=== PATIENT | male | born 1935 | race Caucasian/White ===

== ENCOUNTER → 2017-03-23 | Outpatient (CLI) | payer MEDICARE, OTHER ==
[~2017-03-23] MED LIST: ALLOPURINOL; ASPIRIN81 M1 PO; EYE DROPS; LAMISIL250 MG PO; Lopressor25 MG PO; MAREPA1200 MG; NAPROSYN500 MG PO; PLAVIX75 MG PO; SIMVASTATIN20 MG PO; SIMVASTATIN40 MG PO; SYNTHROID,LEV150 MCG PO; ZYLOPRIM100 MG PO
--- NOTE | ~2017-03-23 | HM ---
[place], [place] HOLTER MONITOR REPORT NAME: ANANDA FERRARO UNIT #: [id number] ROOM: DOCTOR: ARLIN CUELLAR MD BIRTHDATE: [birth year] DOS: A 24-HOUR HOLTER MONITOR REFERRED BY: Dr. Garcia. The patient's study was done from 03/23/2017 through 03/24/2017. INDICATIONS: Irregular heartbeat. FINDINGS: The patient was monitored for 24 hours. Basic rhythm was sinus with an average heart rate of 78. Heart rate in sinus varied from 38 beats per minute to 108 beats per minute. Very frequent premature ventricular contractions were noted with long periods of ventricular bigeminy. The patient did have frequent couplets, occasional triplets and up to 5 consecutive beats of nonsustained ventricular tachycardia. This was polymorphic and fairly slow with a rate of about 100. Occasional premature atrial contractions were noted. Occasional sinus pauses were seen. The patient had at least 2 separate atrial pacers that would alternate back and forth. He did not have any prolonged pauses or SVT. The patient did not return a diary. IMPRESSION: 1. Sinus rhythm with sinus arrhythmia and wandering atrial pacemaker. 2. Very frequent premature ventricular contractions with up to 5 beats of irregular ventricular tachycardia at a slow rate. 3. The patient most likely does have significant underlying conduction system disorder, but he did not have any prolonged pauses or sustained tachyarrhythmias. ARLIN CUELLAR MD CM:HOLTER:HOLTER MONITOR REPORT [id number] ARLIN CUELLAR MD
== END | disposition home or self-care (01) ==
LOC: US 01:08
DX: I65.23 Occlusion and stenosis of bilateral carotid arteries (principal); I49.9 Cardiac arrhythmia, unspecified

== ENCOUNTER → 2018-01-13 | Outpatient (CLI) | payer MEDICARE, OTHER | END | disposition home or self-care (01) | LOC: RAD 15:04 | DX: M54.5 Low back pain (principal) ==

== ENCOUNTER → 2018-01-17 | Outpatient (CLI) | payer MEDICARE, OTHER | END | disposition home or self-care (01) | LOC: RAD 10:08 | DX: N20.0 Calculus of kidney (principal) ==

== ENCOUNTER → 2018-09-07 | Outpatient (CLI) | payer MEDICARE, OTHER ==
[~2018-09-07] MED LIST changes: +PYRIDIUM200 M1 PO; +SEPTDS PO; +ZOFRAN4 MG PO
--- NOTE | ~2018-09-07 | HM ---
[place], [place] HOLTER MONITOR REPORT NAME: ANANDA FERRARO UNIT #: [id number] ROOM: DOCTOR: CAROLINA LEWIS MD BIRTHDATE: [birth year] DOS: 09/07/2018 A 24-HOUR HOLTER MONITOR REFERRING PHYSICIAN: Dr. Isak Walter. INDICATION: Palpitations, lightheadedness. The patient underwent was 24-hour Holter monitoring. FINDINGS: 1. The patient's baseline heart rhythm was normal sinus with average heart rate of 69 beats per minute, minimum heart rate was 43 beats per minute with a maximum heart rate 132 beats per minute. 2. Ventricular activity: The patient had a total of 540 supraventricular ectopic beats. There were 3 runs noted, the longest of which was 10 beats, which suggested to be paroxysmal atrial tachycardia. No other significant atrial arrhythmias were noted. 3. Ventricular activity: The patient was noted to have 15,778 isolated PVCs, which translated to 17.2% of the study. 4. No significant blocks, pauses or bradycardia. 5. Diary entries were reviewed. There were 2 entries of dizziness. Neither correlated with significant arrhythmia. SUMMARY OF FINDINGS: 1. Normal sinus rhythm. 2. Rare supraventricular ectopy with 3 runs of which suggests to be PAT, but did not correlate with symptoms. 3. Very frequent PVCs with approximately 17.2% of the study being ectopic ventricular beats. 4. Clinical correlation recommended given the high frequency of PVC beats. CAROLINA LEWIS MD CM:HOLTER:HOLTER MONITOR REPORT [phone] CAROLINA LEWIS MD
== END | disposition home or self-care (01) ==
LOC: CARD 09:00
DX: I11.0 Hypertensive heart disease with heart failure (principal); I25.810 Atherosclerosis of coronary artery bypass graft(s) without angina pectoris; I50.32 Chronic diastolic (congestive) heart failure

== ENCOUNTER → 2019-06-18 | Outpatient (CLI) | payer MEDICARE, OTHER ==
[~2019-06-18] MED LIST changes: +Motrin,Rufen800 MG PO; +Orphenadrine C100 MG PO
== END | disposition home or self-care (01) ==
LOC: MRI 10:57
DX: M48.061 Spinal stenosis, lumbar region without neurogenic claudication (principal); M51.27 Other intervertebral disc displacement, lumbosacral region; M51.36 Other intervertebral disc degeneration, lumbar region; M12.88 Other specific arthropathies, not elsewhere classified, other specified site

== ENCOUNTER 2019-06-19 20:58 | Emergency (ER) | payer MEDICARE, OTHER ==
[~2019-06-19] VITALS: Ht 170.1 cm; Wt 81.6 kg
[~2019-06-19 20:58] MED LIST changes: -Motrin,Rufen800 MG PO; -Orphenadrine C100 MG PO
[2019-06-19 21:37] LABS: BILIRUBIN NEGATIVE (NEGATIVE); BLOOD NEGATIVE (NEGATIVE); CLARITY SL CLOUDY (CLEAR); COLOR YELLOW (YELLOW); GLUCOSE NEGATIVE (NEGATIVE); KETONE NEGATIVE (NEGATIVE); LEUKO ESTERASE NEGATIVE (NEGATIVE); NITRITE NEGATIVE (NEGATIVE); PH 5.5 (5.0-9.0); SPECIFIC GRAVITY 1.025 (1.005-1.030); UROBILINOGEN 0.2 E.U./dl (0.2-1.0)
[2019-06-19 21:44] LABS: WBC 0-2 wbc/hpf (0-5)
[2019-06-19 21:45] LABS: BACTERIA TRACE
[2019-06-19] MEDS ORDERED: Orphenadrine C100 MG PO (22:59)
[2019-06-19] MEDS ORDERED: Motrin,Rufen800 MG PO (22:59)
== END 2019-06-19 23:23 | disposition home or self-care (01) ==
LOC: ED 20:58
PROVIDERS: Emergency Medicine Emergency Medical Services
DX: S20.212A Contusion of left front wall of thorax, initial encounter (principal); S00.31XA Abrasion of nose, initial encounter; S80.812A Abrasion, left lower leg, initial encounter; S80.811A Abrasion, right lower leg, initial encounter; I10 Essential (primary) hypertension; E78.00 Pure hypercholesterolemia, unspecified; E03.9 Hypothyroidism, unspecified; Z88.1 Allergy status to other antibiotic agents; Z79.2 Long term (current) use of antibiotics; Z79.82 Long term (current) use of aspirin; Z79.899 Other long term (current) drug therapy; Z95.1 Presence of aortocoronary bypass graft; W01.190A Fall on same level from slipping, tripping and stumbling with subsequent striking against furniture, initial encounter; Y93.89 Activity, other specified; Y92.098 Other place in other non-institutional residence as the place of occurrence of the external cause; Y99.8 Other external cause status

== ENCOUNTER 2019-07-23 19:34 | Inpatient (IN) | payer MEDICARE, OTHER ==
[~2019-07-23] VITALS: Ht 172.7 cm; Wt 77.8 kg
[~2019-07-23 19:34] MED LIST changes: +Motrin,Rufen800 MG PO; +Orphenadrine C100 MG PO
[2019-07-23 19:49] VITALS: BP 137/69
[2019-07-23 20:07] LABS: BASO # 0.2 10*3/uL (0.0-0.1); BASO % 1.5 % (0.0-1.0); EOS # 0.1 10*3/uL (0.0-0.4); EOS % 0.6 % (1.0-4.0); HEMATOCRIT 40.7 % (42.0-52.0); HEMOGLOBIN 13.7 g/dl (14.0-18.0); LYMPH # 1.2 10*3/uL (1.3-4.4); LYMPH % 11.7 % (27.0-41.0); MEAN CELL VOLUME 90.6 fl (80.0-94.0); MEAN CORPUSCULAR HGB 30.5 pg (27.0-31.0); MEAN CORPUSCULAR HGB CONC 33.7 g/dl (33.0-37.0); MEAN PLATELET VOLUME 11.7 fl (9.6-12.3); MONO # 1.5 10*3/uL (0.1-1.0); MONO % 14.1 % (3.0-9.0); NEUT # 7.4 10*3/uL (2.3-7.9); NEUT % 71.5 % (47.0-73.0); PLATELET COUNT AUTOMATED 206 10*3/uL (130-400); RED BLOOD COUNT 4.49 10*6/uL (4.50-5.90); RED CELL DISTRI WIDTH 18.5 % (0-14.5); WHITE BLOOD COUNT 10.3 10*3/uL (4.8-10.8)
[2019-07-23 20:28] LABS: ALBUMIN 3.2 gm/dl (3.1-4.5); ALKALINE PHOSPHATASE 72 U/L (45-117); BUN 23 mg/dl (7-24); CHLORIDE 106 mmol/L (98-107); CREATININE 1.31 mg/dL (0.70-1.30); POTASSIUM 4.4 mmol/L (3.5-5.1); SGOT/AST 10 IU/L (3-35); SGPT/ALT 12 U/L (12-78); SODIUM 139 mmol/L (136-145); TOTAL PROTEIN 6.4 gm/dL (6.4-8.2); TROPONIN I < 0.015 ng/ml (<0.045)
[2019-07-23 20:31] LABS: ACT PARTIAL THROMBO TIME 30.8 SECONDS (20.0-32.1); INTERNATIONAL NORM RATIO 1.1 (2.0-3.5)
[2019-07-23 20:43] VITALS: BP 135/60
[2019-07-23 21:35] VITALS: BP 133/68
--- NOTE | 2019-07-23 22:09 | NUR ---
PT BACK FROM CT, REQUESTED TO GO TO REST ROOM, INFORMED I WOULD LIKE TO HAVE HIM BEDREST WITH THE RISK OF PE UNTIL CT CAME BACK, URINAL GIVEN
[2019-07-24 00:25] VITALS: BP 126/91
--- NOTE | 2019-07-24 00:25 | NUR ---
A 83, admitted to 5E, under the services of KELSEY Menjivar DO with a diagnosis of HYPOXIA/PNEUMONIA. Chief complaint is SHORTNESS OF BREATH. Patient arrived via stretcher from ER. Monitor applied. Initial assessment completed. Vital signs taken and recorded. KELSEY MENJIVAR DO notified of admission to the unit. Orders received. See assessment for past medical history, medications and allergies. Patient and/or family oriented to unit. visitation policy reviewed. Clothing/patient valuable form completed. ERIK MCGRATH A
[2019-07-24] MEDS ORDERED: LEVOTHYROXINE125 MCG PO (00:51)
[2019-07-24] MEDS ORDERED: ATORVASTATIN CA20 M1 PO (00:51)
[2019-07-24] MEDS ORDERED: CYCLOBENZAPRINE10 MG PO (01:09)
--- NOTE | 2019-07-24 04:53 | NUR ---
DR. ARREGUIN CONTACTED IN REGARDS TO MED REC BEING UP TO DATE AND MRSA SWAB ORDER. MRSA SWAB D/C'D PER ORDER.
[2019-07-24 06:35] LABS: ALBUMIN 2.8 gm/dl (3.1-4.5); BUN 21 mg/dl (7-24); CHLORIDE 107 mmol/L (98-107); CHOLESTEROL 99 mg/dL (<200); CREATININE 1.17 mg/dL (0.70-1.30); POTASSIUM 4.4 mmol/L (3.5-5.1); SGOT/AST 5 IU/L (3-35); SGPT/ALT 12 U/L (12-78); SODIUM 138 mmol/L (136-145); TOTAL PROTEIN 5.8 gm/dL (6.4-8.2)
[2019-07-24 06:44] LABS: ALKALINE PHOSPHATASE 64 U/L (45-117); HDL CHOLESTEROL 24 mg/dl (40-60); LDL CHOLESTEROL 47 mg/dL (9-159); PHOSPHOROUS 2.9 mg/dL (2.5-4.9); TRIGLYCERIDES 139 mg/dl (<150); VLDL CHOLESTEROL 28 mg/dL (6-40)
[2019-07-24 06:53] LABS: BASO # 0.1 10*3/uL (0.0-0.1); BASO % 1.8 % (0.0-1.0); EOS # 0.1 10*3/uL (0.0-0.4); EOS % 0.8 % (1.0-4.0); HEMATOCRIT 37.4 % (42.0-52.0); HEMOGLOBIN 12.1 g/dl (14.0-18.0); LYMPH # 1.2 10*3/uL (1.3-4.4); LYMPH % 16.1 % (27.0-41.0); MEAN CELL VOLUME 91.9 fl (80.0-94.0); MEAN CORPUSCULAR HGB 29.7 pg (27.0-31.0); MEAN CORPUSCULAR HGB CONC 32.4 g/dl (33.0-37.0); MEAN PLATELET VOLUME 12.1 fl (9.6-12.3); MONO # 0.8 10*3/uL (0.1-1.0); MONO % 10.8 % (3.0-9.0); NEUT % 69.7 % (47.0-73.0); PLATELET COUNT AUTOMATED 175 10*3/uL (130-400); RED BLOOD COUNT 4.07 10*6/uL (4.50-5.90); RED CELL DISTRI WIDTH 18.7 % (0-14.5); WHITE BLOOD COUNT 7.1 10*3/uL (4.8-10.8)
--- NOTE | 2019-07-24 10:40 | NUR ---
SPEECH PATHOLOGY Clinical swallowing evaluation completed as per orders to assess for aspiration risk. Patient reports dysphagia, characterized by a feeling of globus with foods. He stated that he now has to pay attention and take his time when eating. He reports that if he does not take his time and chew up his food properly, it will get stuck, causing him to throw it up. This has been occurring for the past year. Medical hx includes pneumonia, CABG, HTN and hypothyroidism. He receives a regular diet and thin liquids. Patient was assessed with these consistencies. He displayed no oral or pharyngeal swallowing difficulty and was noted to eat slowly, taking small bites and chewing thoroughly. It is recommended that patient remain on present diet, with continued use of safe swallow precautions. Also recommend GI consult to r/o any esophageal problems due to the symptoms he is displaying. These results and servando. were shared with patient and his nurse and they verbalized understanding. Follow up therapy is not warranted at this time. Refer to report in [facility] for further information. Thank you for this referral. KRISTINA BARNES MS CCC-EMERY GRINDER
[2019-07-24 12:00] VITALS: BP 110/82
--- NOTE | 2019-07-24 12:42 | NUR ---
Stereo Operator in to talk to patient. Patient states lives at HOME with ALONE. There are MANY steps in the home. Physician: DANIEL LUNA [facility]acy: [facility] Home health services: NONE Patient's level of ADLs: INDEPENDENT Patient has working utilities: YES DME: NONE Follow-up physician's appointment after d/c: WILL BE MADE BY HOSPITALIST NURSE DIRECTOR ON DISCHARGE Does patient want to access PORTAL?: NO Discharge plan PT IS LIVING AT HOME ALONE AND STATES HE IS VERY ACTIVE. INDEPENDENT IN ALL HIS NEEDS. DENIES HE WILL HAVE ANY NEEDS ON DISCHARGE. WILL CONTINUE TO FOLLOW. WILL HAVE A RIDE HOME PER PT. . NASRIN ZEPEDA
--- NOTE | 2019-07-24 12:48 | NUR ---
DR. MCKENZIE OF CONSULT.
[2019-07-24 16:00] VITALS: BP 114/61
--- NOTE | 2019-07-24 18:47 | NUR ---
PT SINGED CONSENT FOR EGD, BUT LATER REFUSED.
[2019-07-24 20:00] VITALS: BP 114/67
[2019-07-24 21:38] VITALS: BP 118/56
--- NOTE | 2019-07-24 23:49 | NUR ---
24 HR chart check completed.
[2019-07-25] VITALS: BP 148/58
--- NOTE | 2019-07-25 02:54 | NUR ---
PATIENT SLEEPING SOUNDLY. NO S/S OF DISCOMFORT/DISTRESS. BED LOCKED AND IN LOWEST POSITION. CALL LIGHT WITHIN REACH.
[2019-07-25 12:00] VITALS: BP 127/53
--- NOTE | 2019-07-25 12:02 | NUR ---
PT STATES HE WILL RETURN HOME ON DISCHARGE WITH NO NEEDS. WILL CONTINUE TO FOLLOW.
[2019-07-25 16:00] VITALS: BP 146/86
--- NOTE | 2019-07-25 19:34 | NUR ---
24 HR chart check completed.
[2019-07-25 20:00] VITALS: BP 141/71
[2019-07-25 21:44] VITALS: BP 136/60
[2019-07-26] VITALS: BP 137/72
[2019-07-26 08:00] VITALS: BP 142/80
--- NOTE | 2019-07-26 08:18 | NUR ---
PT RESTING IN CHAIR. NO DISTRESS NOTED./ WILL MONITOR
[2019-07-26 12:00] VITALS: BP 148/86
--- NOTE | 2019-07-26 12:18 | NUR ---
PT CONTINUES TO DENY NEEDS AT HOME ON DISCHARGE. WILL CONTINUE TO FOLLOW.
[2019-07-26] MEDS ORDERED: LEVAQUIN750 M1 PO (14:30)
--- NOTE | 2019-07-26 14:47 | NUR ---
Discharge instructions reviewed with patient/family. Patient receptive and verbalizes understanding. Follow-up care arranged. Written instructions given to patient/family. JASPER CORDERO
== END 2019-07-26 14:47 | disposition home or self-care (01) | DRG 178 ==
LOC: ED 19:34 → 5E 23:37 → EDHOLD 23:37 → 5E 23:50
PROVIDERS: Emergency Medicine; Internal Medicine; ADMIT Internal Medicine
DX: J15.6 Pneumonia due to other Gram-negative bacteria (principal); E44.0 Moderate protein-calorie malnutrition; E83.41 Hypermagnesemia; N18.3 Chronic kidney disease, stage 3 (moderate); M10.9 Gout, unspecified; E78.00 Pure hypercholesterolemia, unspecified; E03.9 Hypothyroidism, unspecified; D64.9 Anemia, unspecified; I12.9 Hypertensive chronic kidney disease with stage 1 through stage 4 chronic kidney disease, or unspecified chronic kidney disease; R13.10 Dysphagia, unspecified; R73.9 Hyperglycemia, unspecified; R09.02 Hypoxemia; Z95.1 Presence of aortocoronary bypass graft; Z68.26 Body mass index [BMI] 26.0-26.9, adult; Z98.42 Cataract extraction status, left eye; Z98.41 Cataract extraction status, right eye; Z95.5 Presence of coronary angioplasty implant and graft; Z79.84 Long term (current) use of oral hypoglycemic drugs; Z79.899 Other long term (current) drug therapy; Z88.8 Allergy status to other drugs, medicaments and biological substances; Z82.49 Family history of ischemic heart disease and other diseases of the circulatory system; R07.81 Pleurodynia

== ENCOUNTER 2019-08-12 14:47 | Inpatient (IN) | payer MEDICARE, OTHER ==
[~2019-08-12] VITALS: Ht 172.7 cm; Wt 80.8 kg
[~2019-08-12 14:47] MED LIST changes: +ATORVASTATIN CA20 M1 PO; +CYCLOBENZAPRINE10 MG PO; +LEVAQUIN750 M1 PO; +LEVOTHYROXINE125 MCG PO
[2019-08-12 14:49] VITALS: BP 107/48
[2019-08-12 14:59] LABS: BASO # 0.2 10*3/uL (0.0-0.1); BASO % 2.1 % (0.0-1.0); EOS # 0.1 10*3/uL (0.0-0.4); EOS % 0.5 % (1.0-4.0); HEMATOCRIT 43.1 % (42.0-52.0); HEMOGLOBIN 14.2 g/dl (14.0-18.0); LYMPH # 1.3 10*3/uL (1.3-4.4); LYMPH % 13.9 % (27.0-41.0); MEAN CELL VOLUME 91.9 fl (80.0-94.0); MEAN CORPUSCULAR HGB 30.3 pg (27.0-31.0); MEAN CORPUSCULAR HGB CONC 32.9 g/dl (33.0-37.0); MEAN PLATELET VOLUME 11.9 fl (9.6-12.3); MONO # 1.4 10*3/uL (0.1-1.0); MONO % 14.2 % (3.0-9.0); NEUT # 6.5 10*3/uL (2.3-7.9); NEUT % 67.8 % (47.0-73.0); PLATELET COUNT AUTOMATED 228 10*3/uL (130-400); RED BLOOD COUNT 4.69 10*6/uL (4.50-5.90); RED CELL DISTRI WIDTH 18.3 % (0-14.5); WHITE BLOOD COUNT 9.6 10*3/uL (4.8-10.8)
[2019-08-12 15:10] LABS: ACT PARTIAL THROMBO TIME 29.6 SECONDS (20.0-32.1); INTERNATIONAL NORM RATIO 1.1 (2.0-3.5)
[2019-08-12 15:17] LABS: ALBUMIN 3.4 gm/dl (3.1-4.5); ALKALINE PHOSPHATASE 70 U/L (45-117); BUN 20 mg/dl (7-24); CHLORIDE 108 mmol/L (98-107); CREATININE 1.33 mg/dL (0.70-1.30); POTASSIUM 4.1 mmol/L (3.5-5.1); SGOT/AST 11 IU/L (3-35); SGPT/ALT 11 U/L (12-78); SODIUM 139 mmol/L (136-145); TOTAL PROTEIN 6.3 gm/dL (6.4-8.2)
[2019-08-12 15:18] LABS: TROPONIN I < 0.015 ng/ml (<0.045)
[2019-08-12 15:26] VITALS: BP 102/57
[2019-08-12 16:00] VITALS: BP 131/56
--- NOTE | 2019-08-12 16:07 | NUR ---
A 83, admitted to , under the services of NOEL Souza DO with a diagnosis of CP. Chief complaint is SOB. Patient arrived via bed from ER. Monitor applied. Initial assessment completed. Vital signs taken and recorded. NOEL SOUZA DO notified of admission to the unit. Orders received. See assessment for past medical history, medications and allergies. Patient and/or family oriented to unit. visitation policy reviewed. Clothing/patient valuable form completed. ROC BUTTS
[2019-08-12 18:04] LABS: BILIRUBIN NEGATIVE (NEGATIVE); BLOOD NEGATIVE (NEGATIVE); CLARITY CLEAR (CLEAR); COLOR YELLOW (YELLOW); GLUCOSE NEGATIVE (NEGATIVE); KETONE NEGATIVE (NEGATIVE); LEUKO ESTERASE NEGATIVE (NEGATIVE); NITRITE NEGATIVE (NEGATIVE); UROBILINOGEN 0.2 E.U./dl (0.2-1.0)
[2019-08-12 18:10] LABS: BACTERIA 1+; EPITHELIAL CELLS 0-2; RBC 0-2 rbc/hpf (0-2)
[2019-08-12 20:00] VITALS: BP 120/58
[2019-08-13] VITALS: BP 121/52
[2019-08-13 07:20] LABS: HEMATOCRIT 39.1 % (42.0-52.0); HEMOGLOBIN 12.8 g/dl (14.0-18.0); MEAN CELL VOLUME 92.7 fl (80.0-94.0); MEAN CORPUSCULAR HGB 30.3 pg (27.0-31.0); MEAN CORPUSCULAR HGB CONC 32.7 g/dl (33.0-37.0); MEAN PLATELET VOLUME 12.3 fl (9.6-12.3); PLATELET COUNT AUTOMATED 185 10*3/uL (130-400); RED BLOOD COUNT 4.22 10*6/uL (4.50-5.90); WHITE BLOOD COUNT 6.3 10*3/uL (4.8-10.8)
[2019-08-13 07:52] LABS: ALBUMIN 2.9 gm/dl (3.1-4.5); ALKALINE PHOSPHATASE 59 U/L (45-117); BUN 15 mg/dl (7-24); CHLORIDE 109 mmol/L (98-107); CHOLESTEROL 85 mg/dL (<200); CREATININE 1.23 mg/dL (0.70-1.30); HDL CHOLESTEROL 22 mg/dl (40-60); LDL CHOLESTEROL 12 mg/dL (9-159); POTASSIUM 4.4 mmol/L (3.5-5.1); SGOT/AST 8 IU/L (3-35); SGPT/ALT 10 U/L (12-78); SODIUM 139 mmol/L (136-145); TOTAL PROTEIN 5.7 gm/dL (6.4-8.2); TRIGLYCERIDES 253 mg/dl (<150); VLDL CHOLESTEROL 51 mg/dL (6-40)
[2019-08-13 08:09] LABS: ACT PARTIAL THROMBO TIME 31.3 SECONDS (20.0-32.1); INTERNATIONAL NORM RATIO 1.1 (2.0-3.5)
[2019-08-13 08:28] LABS: VITAMIN D, 25-HYDROXY 15.4 ng/mL (30-100)
[2019-08-13 09:10] LABS: BASOPHILS 5 % (0-1); TOTAL CELLS COUNTED 100 #CELLS
[2019-08-13 09:16] LABS: OVALOCYTES FEW; PLATELET SUFFICIENCY NORMAL (NORMAL)
[2019-08-13 09:21] LABS: BLASTS 1 % (0-0)
[2019-08-13 12:00] VITALS: BP 126/55
[2019-08-13 16:00] VITALS: BP 99/56
--- NOTE | 2019-08-13 16:06 | NUR ---
Fleet Dispatch Manager in to talk to patient. Patient states lives at HOME with ALONE. There are SEVERAL steps in the home. Physician: DANIEL LUAN [facility]: [facility] Home health services: NONE Patient's level of ADLs: INDEPENDENT Patient has working utilities: YES DME: NONE Follow-up physician's appointment after d/c: WILL BE MADE BY HOSPITALIST NURSE DIRECTOR ON DISCHARGE Does patient want to access PORTAL?: NO Discharge plan PT LIVES AT HOME ALONE AND IS INDEPENDENT IN HIS CARE. STATES HE WAS DISCHARGED 2 WEEKS AGO AND WAS DOING WELL UNTIL LAST FEW DAYS WHEN HE BECAME WEAK. STATES HE VERY HEALTHY OTHERWISE AND DENIES HE WILL HAVE ANY NEEDS ON DISCHARGE. STATES HE WILL RETURN HOME WHEN MEDICALLY STABLE WITH NO NEEDS. WILL CONTINUE TO FOLLOW. WILL HAVE A RIDE HOME PER PT.. NASRIN ZEPEDA
[2019-08-13 20:00] VITALS: BP 113/54
--- NOTE | 2019-08-13 22:43 | NUR ---
PT MEDICATED WITH PO RESTORIL PER PRN ORDER FOR C/O INSOMNIA. PT STATES HE WAS UNABLE TO SLEEP MUCH THE NIGHT BEFORE. WILL MONITOR EFFECTIVENESS. DENIES ANY OTHER NEEDS AT PRESENT TIME.
[2019-08-14] VITALS: BP 113/50
--- NOTE | 2019-08-14 03:59 | NUR ---
PT ASLEEP IN BED. RESPIRATIONS EASY. NO S/S OF DISTRESS NOTED. WILL MONITOR. CALL LIGHT IN REACH. BED ALARM INTACT.
[2019-08-14 08:00] VITALS: BP 116/60
--- NOTE | 2019-08-14 10:38 | NUR ---
SPEECH PATHOLOGY Orders for MBS received and chart review completed. Due to absence of a radiologist in this facility today, MBS will be completed tomorrow. Patient is known to this dept. as he was seen for a clinical swallowing evaluation 07/24/19. Thank you for this referral. KRISTINA BARNES MS [facility]-PROCESS DEVELOPMENT MANAGER
[2019-08-14 12:00] VITALS: BP 136/55
--- NOTE | 2019-08-14 13:46 | NUR ---
PT CONTINUES TO DENY HE IS GOING HOME ON DISCHARGE TO SELF CARE. WILL CONTINUE TO FOLLOW.
[2019-08-14 16:00] VITALS: BP 114/47
[2019-08-14 20:00] VITALS: BP 117/55
--- NOTE | 2019-08-14 20:00 | NUR ---
PT REQUESTING HOME NAPROXEN FOR C/O STIFFNESS & ARTHRITIS PAIN. PER HOME MED REC, PT TAKES 1,000 MG DAILY. NOTIFIED OF THIS. INSTRUCTED TO ORDER NAPROXEN HE TAKES AT HOME.
--- NOTE | 2019-08-14 20:05 | NUR ---
PT NOW STATES HE TAKES AT LEAST ONE 500 MG TABLET OF NAPROXEN DAILY, BUT DOES NOT TAKE TWO AT THE SAME TIME. ORDER ADJUSTED TO REFLECT THIS CHANGE.
--- NOTE | 2019-08-14 20:38 | NUR ---
PT MEDICATED WITH SCHEDULED NAPROXEN PER ORDER. PT STATES HE IS HAVING STIFFNESS & MILD ARTHRITIS PAIN. WILL MONITOR EFFECTIVENESS. CALL LIGHT LEFT IN REACH.
[2019-08-15] VITALS: BP 100/47
--- NOTE | 2019-08-15 01:50 | NUR ---
PT ASLEEP IN BED. RESPIRATIONS EASY. NO S/S OF DISTRESS NOTED. WILL MONITOR. CALL LIGHT IN REACH.
[2019-08-15 07:17] LABS: BUN 15 mg/dl (7-24); CHLORIDE 107 mmol/L (98-107); CREATININE 1.32 mg/dL (0.70-1.30); POTASSIUM 4.3 mmol/L (3.5-5.1); SODIUM 139 mmol/L (136-145)
[2019-08-15 08:00] VITALS: BP 115/49
--- NOTE | 2019-08-15 08:05 | NUR ---
PT SITTING UP IN CHAIR. NO DISTRESS NOTED. WILL MONITOR
[2019-08-15] MEDS ORDERED: CETIRIZINE10 MG PO (09:59)
[2019-08-15] MEDS ORDERED: VITAMIN D32000 UNI1 PO (09:59)
[2019-08-15] MEDS ORDERED: DOXYCYCLINE100 M3 PO (09:59)
[2019-08-15 12:00] VITALS: BP 115/49
--- NOTE | 2019-08-15 14:05 | NUR ---
PT CONTINUES TO DENY HOME HEALTH, STATES HE HAS NO NEEDS ON DISCHARGE. WILL CONTINUE TO FOLLOW.
--- NOTE | 2019-08-15 14:07 | NUR ---
PT LEFT AMA DR LUZ AND DANNYOERVCOLE HUTSON NOTIFIED
--- NOTE | 2019-08-15 14:10 | NUR ---
SPEECH PATHOLOGY Modified barium swallow completed as per orders due to dysphagia. Patient was alert and cooperative and reported a feeling of globus occurring when he does not chew foods properly. He stated that at times he has to spit foods up. He receives a regular diet and thin liquid. medical history is significant for SOB, CAD, CABG, dysphagia and malnutrition. He was assessed with puree, solids and thin liquid. He displayed swallowing skills WFL. There were no oral problems, no penetration or aspiration. Slight residue was noted post swallow with barium coated sandwich, which cleared with subsequent swallow. Recommend he remain on present diet and continue with safe swallow precautions such as chewing thoroughly, small bites/sips and alternating liquid and solid. No follow up treatment is warranted at this time. Patient was educated on results and servando. from the study and verbalized understanding. He is scheduled for discharge to home following this procedure. Dictated report to follow. Thank you for this referral. KRISTINA BARNES MSCCC-CERTIFIED JUVENILE PROBATION OFFICER
== END 2019-08-15 14:07 | disposition left against medical advice (07) | DRG 682 ==
LOC: ED 14:47 → EDHOLD 15:36 → 4E 15:36
PROVIDERS: Emergency Medicine; Hospitalist; Internal Medicine; ADMIT Family Medicine
PROC: BD1BYZZ Fluoroscopy of Mouth/Oropharynx using Other Contrast (ICD-10-PCS; principal; 2019-08-15)
DX: N17.9 Acute kidney failure, unspecified (principal); J18.1 Lobar pneumonia, unspecified organism; R73.9 Hyperglycemia, unspecified; I12.9 Hypertensive chronic kidney disease with stage 1 through stage 4 chronic kidney disease, or unspecified chronic kidney disease; N18.3 Chronic kidney disease, stage 3 (moderate); D64.9 Anemia, unspecified; E55.9 Vitamin D deficiency, unspecified; M10.9 Gout, unspecified; E78.00 Pure hypercholesterolemia, unspecified; R13.10 Dysphagia, unspecified; Z53.21 Procedure and treatment not carried out due to patient leaving prior to being seen by health care provider; E03.9 Hypothyroidism, unspecified; I25.10 Atherosclerotic heart disease of native coronary artery without angina pectoris; Z95.1 Presence of aortocoronary bypass graft; Z87.01 Personal history of pneumonia (recurrent); Z91.81 History of falling; Z88.8 Allergy status to other drugs, medicaments and biological substances; Z98.42 Cataract extraction status, left eye; Z95.5 Presence of coronary angioplasty implant and graft; Z98.41 Cataract extraction status, right eye; Z82.49 Family history of ischemic heart disease and other diseases of the circulatory system; Z80.8 Family history of malignant neoplasm of other organs or systems; Z79.82 Long term (current) use of aspirin; Z79.899 Other long term (current) drug therapy

== ENCOUNTER 2019-09-21 06:35 | Inpatient (IN) | payer MEDICARE, OTHER ==
[~2019-09-21] VITALS: Ht 172.7 cm; Wt 77.6 kg
[~2019-09-21 06:35] MED LIST changes: +CETIRIZINE10 MG PO; +DOXYCYCLINE100 M3 PO; +VITAMIN D32000 UNI1 PO
[2019-09-21 06:44] VITALS: BP 154/75
--- NOTE | 2019-09-21 07:10 | NUR ---
REPORT RECEIVED FROM EILEEN OQUENDO.
[2019-09-21] MEDS ORDERED: PREDNISONE10 MG PO (07:32)
[2019-09-21] MEDS ORDERED: CYCLOBENZAPRINE10 MG PO (07:32)
[2019-09-21] MEDS ORDERED: NORCO 5-325 TA1 EACH PO (07:32)
--- NOTE | 2019-09-21 07:33 | NUR ---
PT REPORTS THAT HIS PAIN HAS NOT IMPROVED AT ALL WITH THE MEDICATIONS. DR. VERNON MADE AWARE.
--- NOTE | 2019-09-21 08:16 | NUR ---
PT REPORTS THAT IF THE MEDICATION TOOK ANY OF THE PAIN AWAY IT WAS VERY LITTLE.
--- NOTE | 2019-09-21 09:00 | NUR ---
PT STATES THAT HE IS FEELING IMPROVED AND WOULD LIKE TO WAIT HERE FOR 30 MINUTES TO MAKE SURE HE IS FEELING IMPROVED. DOC MADE AWARE.
--- NOTE | 2019-09-21 09:38 | NUR ---
PT REPORTS THAT THE PAIN HAS EASED UP AND HE DOES APPEAR TO BE MORE COMFORTABLE AT THIS TIME. HE IS STILL NOT ABLE TO SIT COMFORTBLY IN THE BED AND HE REPORTS THAT "I CANT WALK JUST YET BUT I THINK IF I HAD A LITTLE BIT MORE MEDICATION I WOULD BE ABLE TO." DOC MADE AWARE AND IT AT BEDSIDE AT THIS TIME SPEAKING WITH THE PT ABOUT HIS OPTIONS.
--- NOTE | 2019-09-21 10:04 | NUR ---
HEATING PAD APPLIED. LIDOCAINE PATCH WILL BE APPLIED AFTER THE HEAT. PT IS LAYING IN BED. BED IS IN LOW POSITION HE DOES APPEAR UNCOMFORTABLE BUT IS ABLE TO AMBULATE. WILL CONTINUE TO MONITOR
--- NOTE | 2019-09-21 10:37 | NUR ---
PT IS NOW REQUESTING TO STAY IN THE HOSPITAL. DR. VERNON MADE AWARE.
[2019-09-21 10:55] VITALS: BP 155/77
--- NOTE | 2019-09-21 11:22 | NUR ---
PT IS RESTING IN BED AND APPEARS TO BE MORE COMFORTABLE. PENDING BED PLACEMENT. BED IN LOW POSITION. WILL CONTINUE TO MONITOR.
[2019-09-21 11:45] VITALS: BP 156/51
--- NOTE | 2019-09-21 11:45 | NUR ---
Time: 1144 A 83 year old M admitted to under services of TIARA BOB DO. Pt. arrived via wheel chair from DC. Chief complaint: INTRACTABLE PAIN. DAYAN SAM
[2019-09-21] MEDS ORDERED: PREDNISONE5 MG PO (12:08)
[2019-09-21] MEDS ORDERED: CETIRIZINE10 MG PO (12:09)
[2019-09-21 12:43] LABS: HEMATOCRIT 42.8 % (42.0-52.0); HEMOGLOBIN 14.2 g/dl (14.0-18.0); MEAN CORPUSCULAR HGB 30.9 pg (27.0-31.0); MEAN CORPUSCULAR HGB CONC 33.2 g/dl (33.0-37.0); NUCLEATED RED BLOOD CELL 0.2 % (0.0-0.0); PLATELET COUNT AUTOMATED 223 10*3/uL (130-400); RED CELL DISTRI WIDTH 16.5 % (0-14.5); WHITE BLOOD COUNT 10.2 10*3/uL (4.8-10.8)
[2019-09-21 12:59] LABS: ALBUMIN 3.6 gm/dl (3.1-4.5); CREATININE 1.39 mg/dL (0.70-1.30); POTASSIUM 4.7 mmol/L (3.5-5.1); TOTAL PROTEIN 6.6 gm/dL (6.4-8.2)
[2019-09-21 13:03] LABS: BASOPHILS 7 % (0-1); POLYCHROMASIA SLIGHT; TOTAL CELLS COUNTED 100 #CELLS
[2019-09-21 13:04] LABS: PLATELET SUFFICIENCY NORMAL (NORMAL)
--- NOTE | 2019-09-21 13:23 | NUR ---
PT GIVEN DOSE SOLUMEDROM, PATIENT UNDERSTANDS MEDICATION/USE/EFFECT. NO QUESTIONS AT THIS TIME. PT STATE NO NEEDS AT THIS TIME
--- NOTE | 2019-09-21 13:31 | NUR ---
PT COMPLAIN OF BACK PAIN, NORCO GIVEN
--- NOTE | 2019-09-21 14:21 | NUR ---
MADELYN COHEN NP MADE AWARE OF SKIN TEAR WOUND ON RIGHT CALF
--- NOTE | 2019-09-21 14:39 | NUR ---
PT STATES NORCO EFFECTIVE FOR PAIN. AWARE ORDERS FOR DRESSING TO RIGHT CALF SKIN TEAR, REFUSES DRESSING TO AREA AT THIS TIME
[2019-09-21 16:00] VITALS: BP 163/72
--- NOTE | 2019-09-21 17:20 | NUR ---
PATIENT STATES PAIN IN BACK 10/10 WITH MOVEMENT, NORCO GIVEN.
--- NOTE | 2019-09-21 18:10 | NUR ---
PT SLEEPING, NO DISTRESS NOTED
[2019-09-21 20:00] VITALS: BP 137/66
--- NOTE | 2019-09-21 20:42 | NUR ---
PATIENT COMPLAINING OF BACK PAIN THAT IS NOT RELIEVED BY NORCO. PATIENT REQUESTED SOMETHING STRONGER BE GIVEN. I CALLED DR HAWKINS AND TOLD HIM OF THE PATIENT'S REQUEST. DR HAWKINS STATED HE WOULD BE UP TO SEE THE PATIENT.
--- NOTE | 2019-09-21 22:16 | NUR ---
NORCO GIVEN PER PATIENT REQUEST FOR BACK PAIN RATED 9/10. WILL ASSESS EFFECTIVENESS.
--- NOTE | 2019-09-21 22:57 | NUR ---
PATIENT REQUESTED SOMETHING FOR SLEEP. NOTIFIED DR ROMO. DR ROMO STATED HE WOULD ORDER SOMETHING.
--- NOTE | 2019-09-21 23:22 | NUR ---
NORCO SLIGHTLY EFFECTIVE PER PATIENT. PAIN RATED 5/10. WILL CONTINUE TO MONITOR.
--- NOTE | 2019-09-21 23:22 | NUR ---
RESTORIL GIVEN PER PATIENT REQUEST FOR COMPLAINTS OF INSOMNIA. WILL ASSESS EFFECTIVENESS.
[2019-09-22] VITALS: BP 110/62; BP 117/50
--- NOTE | 2019-09-22 00:25 | NUR ---
PRN MEDICATION EFFECTIVE. PATIENT SLEEPING. NO SIGNS OR SYMPTOMS OF DISCOMFORT AT THIS TIME. WILL CONTINUE TO MONITOR THE PATIENT THROUGHOUT THE NIGHT.
--- NOTE | 2019-09-22 05:54 | NUR ---
NORCO GIVEN PER PATIENT REQUEST FOR PAIN RATED 7/10. WILL ASSESS EFFECTIVENESS.
[2019-09-22 06:51] LABS: BASO # 0.2 10*3/uL (0.0-0.1); EOS % 0.1 % (1.0-4.0); HEMATOCRIT 43.9 % (42.0-52.0); HEMOGLOBIN 14.2 g/dl (14.0-18.0); LYMPH # 1.2 10*3/uL (1.3-4.4); LYMPH % 10.6 % (27.0-41.0); MEAN CELL VOLUME 93.6 fl (80.0-94.0); MEAN CORPUSCULAR HGB 30.3 pg (27.0-31.0); MEAN CORPUSCULAR HGB CONC 32.3 g/dl (33.0-37.0); MEAN PLATELET VOLUME 11.9 fl (9.6-12.3); MONO # 1.1 10*3/uL (0.1-1.0); MONO % 9.7 % (3.0-9.0); NEUT # 8.6 10*3/uL (2.3-7.9); NEUT % 76.9 % (47.0-73.0); PLATELET COUNT AUTOMATED 254 10*3/uL (130-400); RED BLOOD COUNT 4.69 10*6/uL (4.50-5.90); RED CELL DISTRI WIDTH 16.5 % (0-14.5); WHITE BLOOD COUNT 11.2 10*3/uL (4.8-10.8)
[2019-09-22 07:30] LABS: ALBUMIN 3.5 gm/dl (3.1-4.5); BUN 34 mg/dl (7-24); CHLORIDE 105 mmol/L (98-107); CHOLESTEROL 107 mg/dL (<200); CREATININE 1.29 mg/dL (0.70-1.30); PHOSPHOROUS 3.9 mg/dL (2.5-4.9); POTASSIUM 4.4 mmol/L (3.5-5.1); SGOT/AST 13 IU/L (3-35); SGPT/ALT 12 U/L (12-78); SODIUM 138 mmol/L (136-145); TRIGLYCERIDES 188 mg/dl (<150); VLDL CHOLESTEROL 38 mg/dL (6-40)
[2019-09-22 07:36] LABS: ALKALINE PHOSPHATASE 54 U/L (45-117); FREE T4 1.05 ng/dl (0.76-1.46); HDL CHOLESTEROL 31 mg/dl (40-60); LDL CHOLESTEROL 38 mg/dL (9-159); TOTAL PROTEIN 6.5 gm/dL (6.4-8.2)
--- NOTE | 2019-09-22 07:45 | NUR ---
Patient resting quietly with no c/o discomfort. Respirations easy and regular. Vital signs stable. No overt distress. DAYAN ALFORD
[2019-09-22 08:00] VITALS: BP 164/76
--- NOTE | 2019-09-22 08:38 | NUR ---
24 HR chart check completed.
[2019-09-22 12:00] VITALS: BP 160/72
--- NOTE | 2019-09-22 12:29 | NUR ---
MEICATED WITH IV DILAUDID ORDERED PER PT REQUEST FOR C/O PAIN TO L LOWER BACK RATED 8/10.
--- NOTE | 2019-09-22 15:33 | NUR ---
MEDICATION EFFECTIVE FOR PAIN.
[2019-09-22 16:00] VITALS: BP 149/69
--- NOTE | 2019-09-22 18:19 | NUR ---
MEDICATED WITH IV DILAUDID ORDERED PER PT REQUEST FOR C/O 06/23 PAIN TO BACK.
[2019-09-22 20:00] VITALS: BP 121/53
--- NOTE | 2019-09-22 22:11 | NUR ---
PERCOCET GIVEN PER PATIENT REQUEST FOR PAIN RATED 7/10. RESTORIL GIVEN PER PATIENT REQUEST FOR INSOMNIA. WILL ASSESS EFFECTIVENESS.
--- NOTE | 2019-09-22 23:00 | NUR ---
PERCOCET SLIGHTLY EFFECTIVE PER PATIENT. WILL CONTINUE TO MONITOR.
--- NOTE | 2019-09-23 01:03 | NUR ---
DILAUDID GIVEN PER PATIENT REQUEST FOR BACK PAIN RATED 7/10. WILL ASSESS EFFECTIVENESS.
--- NOTE | 2019-09-23 02:00 | NUR ---
DILAUDID EFFECTIVE. PATIENT SLEEPING. NO SIGNS OR SYMPTOMS OF DISTRESS. WILL CONTINUE TO MONITOR.
--- NOTE | 2019-09-23 06:27 | NUR ---
PERCOCET GIVEN PER PATIENT REQUEST FOR COMPLAINTS OF BACK PAIN RATED 6/10. WILL ASSESS EFFECTIVENESS.
[2019-09-23 08:00] VITALS: BP 150/80
--- NOTE | 2019-09-23 09:06 | NUR ---
PRN DILAUDID GIVEN FOR PT COMPLAINTS OF PAIN IN THE LEFT HIP RADIATING DOWN THE LEG RATING IT 9/10. CALL LIGHT WITHIN REACH, WILL MONITOR
--- NOTE | 2019-09-23 09:18 | NUR ---
PATIENT STATES THAT MEDICATION IS ALREADY EASING THE PAIN. RATES IT NOW 4/10. STATES IT'S WORSE WHEN STANDING ON IT. CALL LIGHT WITHIN REACH, WILL MONITOR
[2019-09-23 12:00] VITALS: BP 128/77
--- NOTE | 2019-09-23 12:12 | NUR ---
PRN PERCOCET GIVEN FOR PT COMPLAINTS OF PAIN IN THE HIP RATING IT 08/23/ CALL LIGHT POOJA PIERCE, WILL MONITOR
--- NOTE | 2019-09-23 13:09 | NUR ---
PRN DILAUDID GIVEN FOR PT COMPLAINTS OF PAIN IN THE LEFT HIP RADIATING DOWN THE LEFT LEG RATING IT 7/10. CALL LIGHT WITHIN REACH, WILL MONITOR
--- NOTE | 2019-09-23 14:00 | NUR ---
PATIENT STATES EARLIER MEDICATION NOT VERY EFFECTIVE, BUT WOULD LIKE TO WAIT A LITTLE BIT TO SEE IF THE PAIN WILL GO AWAY
[2019-09-23 16:00] VITALS: BP 166/79
--- NOTE | 2019-09-23 16:52 | NUR ---
PRN DILAUDID GIVEN FOR PT COMPLAINTS OF 10/10 PAIN IN LEFT HIP. CALL LIGHT WITHIN REACH, WILL MONITOR
--- NOTE | 2019-09-23 17:53 | NUR ---
DR. ROMO NOTIFIED AT THIS TIME THAT PATIENT IS THRASHNG AROUND IN THE BED IN PAIN. STATES THAT THE MEDICATION IS NOT HELPING HIM ANY LONGER. NOTIFIED HIM THAT THE PATIENT HAS HAD DILAUDID AND PERCOCET WITHOUT RELIEF. NOTIFIED HIM HE IS ALSO ON STEROIDS AND A MUSCLE RELAXER. DILAUDID 2MG ORDERED TO BE GIVEN NOW
--- NOTE | 2019-09-23 17:54 | NUR ---
MOM EFFECTIVE PATIENT HAD BOWEL MOVEMENT
--- NOTE | 2019-09-23 18:39 | NUR ---
PATIENT REPORTS THAT HE FINALLY HAS SOME RELIEF FROM PAIN.
--- NOTE | 2019-09-23 19:43 | NUR ---
PERCOCET GIVEN PER PATIENT REQUEST FOR BACK PAIN RATED 7/10. WILL ASSESS EFFECTIVENESS.
[2019-09-23 20:00] VITALS: BP 169/81
--- NOTE | 2019-09-23 20:40 | NUR ---
PERCOCET SOMEWHAT EFFECTIVE. BACK HURTING WITH MOVEMENT AND BETTER AT REST PER PATIENT. PATIENT UP TO GET A SHOWER. TOLERATED WELL. WILL CONTINUE TO MONITOR.
--- NOTE | 2019-09-23 21:16 | NUR ---
DILAUDID GIVEN PER PATIENT REQUEST FOR BACK PAIN RATED 7/10. WILL ASSESS EFFECTIVENESS.
--- NOTE | 2019-09-23 22:10 | NUR ---
DILAUDID EFFECTIVE PER PATIENT. FAMILY AT BEDSIDE. KPAD UNDER PATIENTS LEFT LOWER BACK. PATIENT RESTING IN BED WITH CALL LIGHT IN REACH. WILL CONTINUE TO MONITOR.
--- NOTE | 2019-09-23 22:17 | NUR ---
24 HR chart check completed.
--- NOTE | 2019-09-23 23:09 | NUR ---
PATIENT REQUESTED THAT THE AIDES DO NOT TAKE MIDNIGHT VITALS. LORI AGUILERA, IS AWARE.
--- NOTE | 2019-09-24 00:27 | NUR ---
Patient resting quietly with no c/o discomfort. Respirations easy and regular. Vital signs stable. No overt distress. CALL LIGHT WITHIN REACH. ROLANDA SWARTZ
--- NOTE | 2019-09-24 01:26 | NUR ---
DILAUDID GIVEN PER PATIENT REQUEST FOR BACK AND HIP PAIN RATED 9/10. WILL ASSESS EFFECTIVENESS.
--- NOTE | 2019-09-24 02:25 | NUR ---
DILAUDID SLIGHTLY EFFECTIVE PER PATIENT. WILL CONTINUE TO MONITOR.
--- NOTE | 2019-09-24 03:26 | NUR ---
PERCOCET GIVEN PER PATIENT REQUEST FOR COMPLAINTS OF BACK PAIN RATED 7/10. WILL ASSESS EFFECTIVENESS.
--- NOTE | 2019-09-24 04:30 | NUR ---
PERCOCET SLIGHTLY EFFECTIVE PER PATIENT. WILL CONTINUE TO MONITOR. CALL LIGHT WITHIN REACH.
--- NOTE | 2019-09-24 05:45 | NUR ---
DILAUDID GIVEN PER PATIENT REQUEST FOR BACK PAIN RATED 9/10. WILL ASSESS EFFECTIVENESS.
--- NOTE | 2019-09-24 06:42 | NUR ---
DILAUDID EFFECTIVE. PATIENT RESTING IN BED. NO SIGNS OR SYMPTOMS OF DISTRESS. WILL CONTINUE TO MONITOR.
[2019-09-24 08:00] VITALS: BP 169/101
--- NOTE | 2019-09-24 09:00 | NUR ---
Teaching Manager in to talk to patient. Patient states lives at home with alone. There are few steps in the home. Physician: christopher acevedo Pharmacy: [facility] Home health services: none Patient's level of ADLs: MINIMAL ASSIST Patient has working utilities: all working DME: none Follow-up physician's appointment after d/c: will be made by [facility] nurse director upon discharge Does patient want to access PORTAL?: no Discharge plan discussed with patient and son, patient lives at home and hasn't been able to get around well lately, son was upset this morning and wanted patient transferred, Dr Montes, case management and patient's nurse attempted to educate the son that patient was on the appropriate medications to relieve his back pain and with DJD it would take some time to be free of pain and be able to ambulate without the pain, son did not want to hear this explaination, and wanted patient transferred another facility today, Dr Montes will contact other facilities to initiate a transfer. OSEI YADAV
--- NOTE | 2019-09-24 09:07 | NUR ---
ANANDA FERRARO [id number] Please refer to the physician's history and physical for past medical history, comorbid conditions, and allergies. Diagnosis: INTRACTABLE BACK PAIN Cy Score: 17,AT RISK WOUND DESCRIPTIONS:Wound Number: 1 Location of the wound: RIGHT CALF Thickness: Full Size: 1.5cM X 1.3cm X 0.1cm Tunneling: NONE Undermining: NONE Sinus Tract: NONE Presence of Exudate: Serous sanguineous Amount: Light Color: Yellow, Red Odor: None Periwound Skin Appearance: Erythema Wound edges: APPROXIMATED Pain (associated with wound): DENIED AT TIME OF ASSESSMENT How does patient state this happened? PATIENT UNSURE HOW THIS HAPPENED. If wound is on legs/feet or hands, capillary refill time, pulses, color temp, sensation: CAP REFILL < 3 SECONDS. Surface the patient is resting on: Position Pro SKIN PREVENTION RECOMMENDATION: 1. Pressure redistribution support surface as appropriate 2. Elevate heels 3. Remove boots/TEDS every shift and reapply 4. Head of bed 30 degrees as tolerated 5. Assess nutrition and hydration 6. Manage moisture 7. Avoid the use of containment devices while in bed 8. Use absorptive products on surfaces limit layers of linens on bed 9. Turn and reposition every 1-2 hours in bed and every 1 hour in chair as tolerated 10. Weight shifts every 15 minutes while up in chair 11. Offloading with pillows or device to keep heels elevated off bed 12. Monitor skin at least every shift 13. Inspect under medical devices twice a day WOUND TREATMENT RECOMMENDATIONS: CONTINUE CURRENT SKIN TEAR GUIDELINES.
--- NOTE | 2019-09-24 09:30 | NUR ---
PT MEDICATED WITH DILAUDID 1MG IV FOR C/O SEVERE BACK PAIN.
[2019-09-24 12:00] VITALS: BP 155/77
--- NOTE | 2019-09-24 12:01 | NUR ---
Occupational Therapy referral received. Patient to be transferred to [facility] for neurological consult. Allyson Beltran OTR/L
--- NOTE | 2019-09-24 12:54 | NUR ---
NURSE TO NURSE REPORT GIVEN TO CHRIS AT [phone]. PT GOING TO ROOM 5402 AT [facility]. PT AND HIS SON AWARE OF TRANSFER.
--- NOTE | 2019-09-24 13:13 | NUR ---
PT REFUSED ANOTHER PICTURE OF HIS RIGHT CALF WOUND.
--- NOTE | 2019-09-24 13:50 | NUR ---
[facility] HERE TO TRANSPORT PT TO [facility].
--- NOTE | 2019-09-24 13:55 | NUR ---
PT MEDICATED WITH DILAUDID AT HIS REQUEST FOR SEVERE BACK PAIN TO [facility] TO [facility]
--- NOTE | 2019-09-24 18:17 | NUR ---
PHYSICAL THERAPY Physical Therapy referral received. Patient to be transferred to [facility] for neurological consult. Thank you. Afshan Camejo,PT,DPT
== END 2019-09-24 13:55 | disposition short-term general hospital (02) | DRG 552 ==
LOC: ED 06:35 → EDHOLD 10:41 → 4E 10:41
PROVIDERS: Registered Nurse; ADMIT Emergency Medicine
DX: M54.5 Low back pain (principal); R26.2 Difficulty in walking, not elsewhere classified; M10.9 Gout, unspecified; E03.9 Hypothyroidism, unspecified; I25.10 Atherosclerotic heart disease of native coronary artery without angina pectoris; E78.00 Pure hypercholesterolemia, unspecified; Z88.9 Allergy status to unspecified drugs, medicaments and biological substances; Z95.1 Presence of aortocoronary bypass graft; Z98.42 Cataract extraction status, left eye; Z98.41 Cataract extraction status, right eye; Z95.5 Presence of coronary angioplasty implant and graft; Z72.89 Other problems related to lifestyle; I12.9 Hypertensive chronic kidney disease with stage 1 through stage 4 chronic kidney disease, or unspecified chronic kidney disease; N18.3 Chronic kidney disease, stage 3 (moderate); Z87.01 Personal history of pneumonia (recurrent); Z79.82 Long term (current) use of aspirin

== ENCOUNTER 2020-10-10 08:48 | Emergency (ER) | payer MEDICARE, OTHER ==
[~2020-10-10] VITALS: Wt 74.8 kg
[~2020-10-10 08:48] MED LIST changes: +NORCO 5-325 TA1 EACH PO; +PREDNISONE10 MG PO; +PREDNISONE5 MG PO
== END 2020-10-10 09:38 | disposition home or self-care (01) ==
LOC: ED 08:48
DX: U07.1 COVID-19 (principal); Z79.899 Other long term (current) drug therapy; Z79.82 Long term (current) use of aspirin

== ENCOUNTER 2020-10-16 09:31 | Emergency (ER) | payer MEDICARE, OTHER ==
[~2020-10-16] VITALS: Ht 172.7 cm; Wt 74.8 kg
[2020-10-16 09:35] VITALS: BP 137/52
[2020-10-16 09:42] VITALS: BP 107/59
[2020-10-16 10:41] LABS: HEMATOCRIT 38.1 % (42.0-52.0); MEAN CELL VOLUME 85.2 fl (80.0-94.0); MEAN CORPUSCULAR HGB 27.5 pg (27.0-31.0); MEAN CORPUSCULAR HGB CONC 32.3 g/dl (33.0-37.0); PLATELET COUNT AUTOMATED 96 10*3/uL (130-400); RED BLOOD COUNT 4.47 10*6/uL (4.50-5.90); RED CELL DISTRI WIDTH 16.2 % (0-14.5); WHITE BLOOD COUNT 4.5 10*3/uL (4.8-10.8)
[2020-10-16 10:50] LABS: ACT PARTIAL THROMBO TIME 43.5 SECONDS (20.0-32.1); INTERNATIONAL NORM RATIO 1.1 (2.0-3.5)
[2020-10-16 10:56] LABS: ALBUMIN 2.7 gm/dl (3.1-4.5); ALKALINE PHOSPHATASE 60 U/L (45-117); BUN 40 mg/dl (7-24); CHLORIDE 107 mmol/L (98-107); CREATININE 1.47 mg/dL (0.70-1.30); LIPASE 26 U/L (73-393); POTASSIUM 4.7 mmol/L (3.5-5.1); SGOT/AST 23 IU/L (3-35); SGPT/ALT 9 U/L (12-78); SODIUM 137 mmol/L (136-145); TOTAL PROTEIN 6.1 gm/dL (6.4-8.2); TROPONIN I < 0.015 ng/ml (<0.045)
[2020-10-16 11:07] LABS: BASOPHILS 1 % (0-1); PLATELET SUFFICIENCY LOW (NORMAL); TOTAL CELLS COUNTED 100 #CELLS
[2020-10-16 11:28] VITALS: BP 115/49
[2020-10-16 13:05] VITALS: BP 129/58
[2020-10-16] MEDS ORDERED: PREDNISONE20 M1 PO (16:13)
[2020-10-16] MEDS ORDERED: PROVENTIL HFA6.7 GM INH (16:13)
== END 2020-10-16 16:29 | disposition home or self-care (01) ==
LOC: ED 09:31 → EDHOLD 13:31 → ED 16:29
PROVIDERS: Physician Assistant
DX: U07.1 COVID-19 (principal); R53.1 Weakness; Z88.8 Allergy status to other drugs, medicaments and biological substances; Z79.899 Other long term (current) drug therapy; Z79.82 Long term (current) use of aspirin

== ENCOUNTER → 2020-10-31 | Outpatient (CLI) | payer MEDICARE, OTHER ==
[~2020-10-31] MED LIST changes: +PREDNISONE20 M1 PO; +PROVENTIL HFA6.7 GM INH
== END | disposition home or self-care (01) ==
LOC: US 14:28
PROVIDERS: ATTEND Physician Assistant
DX: I25.810 Atherosclerosis of coronary artery bypass graft(s) without angina pectoris (principal); U07.1 COVID-19

== ENCOUNTER → 2020-11-05 | Outpatient (CLI) | payer MEDICARE, OTHER | END | disposition home or self-care (01) | LOC: US 00:45 | PROVIDERS: ATTEND Physician Assistant | DX: U07.1 COVID-19 (principal); J12.89 Other viral pneumonia; I25.10 Atherosclerotic heart disease of native coronary artery without angina pectoris; I49.9 Cardiac arrhythmia, unspecified; I73.00 Raynaud's syndrome without gangrene; J90 Pleural effusion, not elsewhere classified; K76.0 Fatty (change of) liver, not elsewhere classified; K80.20 Calculus of gallbladder without cholecystitis without obstruction ==

== ENCOUNTER → 2020-11-22 | Outpatient (CLI) | payer MEDICARE, OTHER | END | disposition home or self-care (01) | LOC: RAD 06:38 | PROVIDERS: ATTEND Physician Assistant | DX: J18.9 Pneumonia, unspecified organism (principal) ==

== ENCOUNTER → 2021-12-23 | Outpatient (CLI) | payer MEDICARE, OTHER | END | disposition home or self-care (01) | LOC: RAD 12:41 | PROVIDERS: ATTEND Physician Assistant | DX: M47.812 Spondylosis without myelopathy or radiculopathy, cervical region (principal); G95.89 Other specified diseases of spinal cord; M48.02 Spinal stenosis, cervical region ==

== ENCOUNTER → 2021-12-24 | Outpatient (CLI) | payer MEDICARE, OTHER | END | disposition home or self-care (01) | LOC: RAD 13:00 | PROVIDERS: ATTEND Physician Assistant | DX: J44.9 Chronic obstructive pulmonary disease, unspecified (principal); L57.0 Actinic keratosis; I51.7 Cardiomegaly; I25.810 Atherosclerosis of coronary artery bypass graft(s) without angina pectoris; M54.2 Cervicalgia; R06.02 Shortness of breath; Z91.09 Other allergy status, other than to drugs and biological substances; Z95.1 Presence of aortocoronary bypass graft ==

== ENCOUNTER → 2021-12-31 | Outpatient (CLI) | payer MEDICARE, OTHER ==
[2021-12-31 11:49] LABS: POTASSIUM 5.2 mmol/L (3.5-5.1)
[2021-12-31 11:50] LABS: CREATININE 1.7 mg/dL (0.70-1.30)
== END | disposition home or self-care (01) ==
LOC: CARD 10:15 → LAB 10:20
PROVIDERS: ATTEND Internal Medicine Cardiovascular Disease
DX: I08.3 Combined rheumatic disorders of mitral, aortic and tricuspid valves (principal); I48.91 Unspecified atrial fibrillation

== ENCOUNTER → 2022-01-18 | Outpatient (CLI) | payer MEDICARE, OTHER | END | disposition home or self-care (01) | LOC: RAD 16:35 | PROVIDERS: ATTEND Physician Assistant | DX: J44.9 Chronic obstructive pulmonary disease, unspecified (principal); J98.11 Atelectasis ==

== ENCOUNTER → 2022-04-09 | Outpatient (CLI) | payer MEDICARE, OTHER | END | disposition home or self-care (01) | LOC: CARD 01:26 | PROVIDERS: ATTEND Internal Medicine Cardiovascular Disease | DX: I08.3 Combined rheumatic disorders of mitral, aortic and tricuspid valves (principal); I25.5 Ischemic cardiomyopathy; R06.02 Shortness of breath; I48.0 Paroxysmal atrial fibrillation; Z95.1 Presence of aortocoronary bypass graft ==

== ENCOUNTER 2022-04-17 12:17 | Emergency (ER) | payer MEDICARE, OTHER ==
[~2022-04-17] VITALS: Ht 170.1 cm; Wt 68.0 kg
== END 2022-04-17 15:57 | disposition home or self-care (01) ==
LOC: ED 12:17
DX: S61.412A Laceration without foreign body of left hand, initial encounter (principal); S81.012A Laceration without foreign body, left knee, initial encounter; S81.011A Laceration without foreign body, right knee, initial encounter; S00.31XA Abrasion of nose, initial encounter; I12.9 Hypertensive chronic kidney disease with stage 1 through stage 4 chronic kidney disease, or unspecified chronic kidney disease; N18.30 Chronic kidney disease, stage 3 unspecified; M10.9 Gout, unspecified; E03.9 Hypothyroidism, unspecified; E78.00 Pure hypercholesterolemia, unspecified; I25.10 Atherosclerotic heart disease of native coronary artery without angina pectoris; Z88.1 Allergy status to other antibiotic agents; Z79.899 Other long term (current) drug therapy; W01.0XXA Fall on same level from slipping, tripping and stumbling without subsequent striking against object, initial encounter; Y93.89 Activity, other specified; Y92.89 Other specified places as the place of occurrence of the external cause; Y99.8 Other external cause status

== ENCOUNTER 2022-04-23 21:30 | Emergency (ER) | payer MEDICARE, OTHER ==
[2022-04-23 22:00] LABS: HEMATOCRIT 33.9 % (42.0-52.0); MEAN CELL VOLUME 92.9 fl (80.0-94.0); MEAN CORPUSCULAR HGB 30.4 pg (27.0-31.0); MEAN CORPUSCULAR HGB CONC 32.7 g/dl (33.0-37.0); MEAN PLATELET VOLUME 11.2 fl (9.6-12.3); NUCLEATED RED BLOOD CELL 0.2 % (0.0-0.0); PLATELET COUNT AUTOMATED 255 10*3/uL (130-400); RED BLOOD COUNT 3.65 10*6/uL (4.50-5.90); RED CELL DISTRI WIDTH 19.1 % (0-14.5); WHITE BLOOD COUNT 8.7 10*3/uL (4.8-10.8)
[2022-04-23 22:02] LABS: MANUAL DIFF REFLEX YES
[2022-04-23 22:16] LABS: CREATININE 3.24 mg/dL (0.70-1.30); POTASSIUM 4.5 mmol/L (3.5-5.1); TOTAL PROTEIN 6.5 gm/dL (6.4-8.2)
[2022-04-23 22:35] LABS: BASOPHILS 1 % (0-1); PLATELET SUFFICIENCY NORMAL (NORMAL); TOTAL CELLS COUNTED 100 #CELLS
[2022-04-23 22:40] LABS: BILIRUBIN Negative (Negative); BLOOD Negative (Negative); CLARITY Clear (Clear); COLOR Yellow (Yellow); GLUCOSE Negative (Negative); KETONE Negative (Negative); LEUKO ESTERASE Negative (Negative); NITRITE Negative (Negative); PH 5.5 (4.5-8.0); SPECIFIC GRAVITY 1.015 (1.001-1.030); UROBILINOGEN 0.2 E.U./dl (0.0-1.0)
[2022-04-23 23:14] LABS: WBC 0-2 wbc/hpf (0-5)
== END 2022-04-24 13:02 | disposition short-term general hospital (02) ==
LOC: ED 21:30
PROVIDERS: Internal Medicine
DX: D64.9 Anemia, unspecified (principal); N17.9 Acute kidney failure, unspecified; Z79.899 Other long term (current) drug therapy; Z79.82 Long term (current) use of aspirin

== ENCOUNTER → 2022-05-18 | Outpatient (CLI) | payer MEDICARE, OTHER | END | disposition home or self-care (01) | LOC: RAD 12:04 | PROVIDERS: ATTEND Urology | DX: N20.0 Calculus of kidney (principal) ==

== ENCOUNTER 2022-11-01 16:25 | Emergency (ER) | payer MEDICARE, OTHER ==
[~2022-11-01] VITALS: Wt 72.6 kg
[2022-11-01] MEDS ORDERED: LIDODERM1 EACH T (19:10)
== END 2022-11-01 20:17 | disposition home or self-care (01) ==
LOC: ED 16:25
DX: S01.81XA Laceration without foreign body of other part of head, initial encounter (principal); Z88.1 Allergy status to other antibiotic agents; Z79.899 Other long term (current) drug therapy; Z79.82 Long term (current) use of aspirin; Z98.890 Other specified postprocedural states; W22.8XXA Striking against or struck by other objects, initial encounter; Y93.89 Activity, other specified; Y92.89 Other specified places as the place of occurrence of the external cause; Y99.8 Other external cause status

== ENCOUNTER → 2023-02-03 | Outpatient (CLI) | payer MEDICARE, OTHER ==
[~2023-02-03] MED LIST changes: +LIDODERM1 EACH T
[2023-02-03 11:00] LABS: BILIRUBIN Negative (Negative); BLOOD Negative (Negative); CLARITY Clear (Clear); COLOR Yellow (Yellow); GLUCOSE Negative (Negative); KETONE Negative (Negative); LEUKO ESTERASE Negative (Negative); NITRITE Negative (Negative); PH 5.5 (4.5-8.0); UROBILINOGEN 0.2 E.U./dl (0.0-1.0)
[2023-02-03 11:01] LABS: BASO # 0.2 10*3/uL (0.0-0.1); BASO % 2.9 % (0.0-1.0); EOS # 0.1 10*3/uL (0.0-0.4); EOS % 0.7 % (1.0-4.0); HEMATOCRIT 36.9 % (42.0-52.0); LYMPH # 1.4 10*3/uL (1.3-4.4); LYMPH % 16.7 % (27.0-41.0); MEAN CELL VOLUME 95.8 fl (80.0-94.0); MEAN CORPUSCULAR HGB 30.1 pg (27.0-31.0); MEAN CORPUSCULAR HGB CONC 31.4 g/dl (33.0-37.0); MONO # 1.4 10*3/uL (0.1-1.0); MONO % 16.6 % (3.0-9.0); NEUT % 61.1 % (47.0-73.0); NUCLEATED RED BLOOD CELL 0.4 % (0.0-0.0); PLATELET COUNT AUTOMATED 261 10*3/uL (130-400); RED BLOOD COUNT 3.85 10*6/uL (4.50-5.90); RED CELL DISTRI WIDTH 17.2 % (0-14.5); WHITE BLOOD COUNT 8.2 10*3/uL (4.8-10.8)
[2023-02-03 11:08] LABS: URINE CREATININE RANDOM 101.61 mg/dL
[2023-02-03 11:19] LABS: BACTERIA 1+; EPITHELIAL CELLS 0-2; HYALINE CAST 0-2
[2023-02-03 11:25] LABS: POTASSIUM 5.4 mmol/L (3.4-5.1)
== END | disposition home or self-care (01) ==
LOC: LAB 10:08
PROVIDERS: ATTEND Internal Medicine Nephrology
DX: N18.32 Chronic kidney disease, stage 3b (principal); D63.1 Anemia in chronic kidney disease; N25.81 Secondary hyperparathyroidism of renal origin; Z79.899 Other long term (current) drug therapy

== ENCOUNTER 2023-06-28 16:57 | Emergency (ER) | payer MEDICARE, OTHER ==
[~2023-06-28] VITALS: Wt 69.4 kg
[2023-06-28 17:26] LABS: HEMATOCRIT 35.1 % (42.0-52.0); MEAN CELL VOLUME 92.6 fl (80.0-94.0); MEAN CORPUSCULAR HGB CONC 31.3 g/dl (33.0-37.0); NUCLEATED RED BLOOD CELL 0.3 % (0.0-0.0); PLATELET COUNT AUTOMATED 189 10*3/uL (130-400); RED BLOOD COUNT 3.79 10*6/uL (4.50-5.90); RED CELL DISTRI WIDTH 17.6 % (0-14.5); WHITE BLOOD COUNT 6.5 10*3/uL (4.8-10.8)
[2023-06-28 17:27] LABS: MANUAL DIFF REFLEX YES
[2023-06-28 17:37] LABS: ACT PARTIAL THROMBO TIME 33.6 SECONDS (20.0-32.1); INTERNATIONAL NORM RATIO 1.2 (2.0-3.5)
[2023-06-28 17:50] LABS: ALKALINE PHOSPHATASE 66 U/L (46-116); BUN 32 mg/dl (9-23); CHLORIDE 110 mmol/L (98-107); POTASSIUM 5.2 mmol/L (3.4-5.1); TOTAL PROTEIN 6.3 gm/dL (6.0-8.0)
[2023-06-28 17:51] LABS: SGPT/ALT < 7 U/L (10-49)
[2023-06-28 17:55] LABS: BASOPHILS 5 % (0-1); PLATELET SUFFICIENCY NORMAL (NORMAL); TOTAL CELLS COUNTED 100 #CELLS
[2023-06-28] MEDS ORDERED: LEVOTHYROXINE175 MCG PO (19:04)
[2023-06-28] MEDS ORDERED: PACERONE400 MG PO (19:05)
[2023-06-28] MEDS ORDERED: CARVEDILOL6.25 MG PO (19:05)
[2023-06-28] MEDS ORDERED: APRESOLINE10 MG PO (19:05)
[2023-06-28] MEDS ORDERED: LASIX20 MG PO (19:20)
[2023-06-28] MEDS ORDERED: VITAMIN D325 MCG PO (19:22)
== END 2023-06-28 21:47 | disposition home or self-care (01) ==
LOC: ED 16:57
PROVIDERS: Student in an Organized Health Care Education/Training Program
DX: I13.0 Hypertensive heart and chronic kidney disease with heart failure and stage 1 through stage 4 chronic kidney disease, or unspecified chronic kidney disease (principal); I50.9 Heart failure, unspecified; N18.9 Chronic kidney disease, unspecified; I25.10 Atherosclerotic heart disease of native coronary artery without angina pectoris; E78.5 Hyperlipidemia, unspecified; I48.91 Unspecified atrial fibrillation; Z88.8 Allergy status to other drugs, medicaments and biological substances; Z98.890 Other specified postprocedural states; Z95.5 Presence of coronary angioplasty implant and graft

== ENCOUNTER → 2023-06-30 | Outpatient (CLI) | payer MEDICARE, OTHER ==
[~2023-06-30] MED LIST changes: +APRESOLINE10 MG PO; +CARVEDILOL6.25 MG PO; +LASIX20 MG PO; +LEVOTHYROXINE175 MCG PO; +PACERONE400 MG PO; +VITAMIN D325 MCG PO
== END | disposition home or self-care (01) ==
LOC: CARD 07:56
PROVIDERS: ATTEND Internal Medicine Cardiovascular Disease
DX: I08.3 Combined rheumatic disorders of mitral, aortic and tricuspid valves (principal); I42.0 Dilated cardiomyopathy; I10 Essential (primary) hypertension; Z95.5 Presence of coronary angioplasty implant and graft

== ENCOUNTER → 2023-07-07 | Outpatient (CLI) | payer MEDICARE, OTHER | END | disposition home or self-care (01) | LOC: RAD 09:00 | PROVIDERS: ATTEND Specialist | DX: K21.9 Gastro-esophageal reflux disease without esophagitis (principal); I51.7 Cardiomegaly; Z95.1 Presence of aortocoronary bypass graft ==

== ENCOUNTER → 2023-08-04 | Outpatient (CLI) | payer MEDICARE, OTHER | END | disposition home or self-care (01) | LOC: CT 00:21 | PROVIDERS: ATTEND Specialist | DX: J90 Pleural effusion, not elsewhere classified (principal); I25.10 Atherosclerotic heart disease of native coronary artery without angina pectoris; R59.1 Generalized enlarged lymph nodes; J43.9 Emphysema, unspecified; Z95.1 Presence of aortocoronary bypass graft ==

== ENCOUNTER → 2023-08-16 | Outpatient (CLI) | payer MEDICARE, OTHER | END | disposition home or self-care (01) | LOC: RAD 01:30 | PROVIDERS: ATTEND Specialist | DX: K21.9 Gastro-esophageal reflux disease without esophagitis (principal); K44.9 Diaphragmatic hernia without obstruction or gangrene ==

== ENCOUNTER → 2024-01-26 | Outpatient (CLI) | payer MEDICARE, OTHER ==
[~2024-01-26] MED LIST changes: +CARVEDILOL3.125 MG PO; +FUROSEMIDE40 MG PO; +IMDUR SA30 MG PO
[2024-01-26 09:42] LABS: HEMATOCRIT 32.6 % (42.0-52.0); MEAN CELL VOLUME 96.4 fl (80.0-94.0); MEAN CORPUSCULAR HGB CONC 30.1 g/dl (33.0-37.0); MEAN PLATELET VOLUME 11.2 fl (9.6-12.3); NUCLEATED RED BLOOD CELL 0.3 % (0.0-0.0); PLATELET COUNT AUTOMATED 294 10*3/uL (130-400); RED BLOOD COUNT 3.38 10*6/uL (4.50-5.90); RED CELL DISTRI WIDTH 18.1 % (0-14.5); WHITE BLOOD COUNT 10.1 10*3/uL (4.8-10.8)
[2024-01-26 09:43] LABS: BILIRUBIN Negative (Negative); BLOOD Negative (Negative); CLARITY Clear (Clear); COLOR Yellow (Yellow); GLUCOSE Negative (Negative); KETONE Negative (Negative); LEUKO ESTERASE Negative (Negative); MANUAL DIFF REFLEX YES; NITRITE Negative (Negative); PH 5.5 (4.5-8.0); UROBILINOGEN 0.2 E.U./dl (0.0-1.0)
[2024-01-26 09:52] LABS: URINE CREATININE RANDOM 81.43 mg/dL
[2024-01-26 10:04] LABS: BASOPHILS 3 % (0-1); POTASSIUM 5.5 mmol/L (3.4-5.1); TOTAL CELLS COUNTED 100 #CELLS
[2024-01-26 10:05] LABS: OVALOCYTES FEW; PLATELET SUFFICIENCY NORMAL (NORMAL); POLYCHROMASIA SLIGHT
[2024-01-26 10:07] LABS: VITAMIN D, 25-HYDROXY 24.1 ng/mL (30-100)
== END | disposition home or self-care (01) ==
LOC: LAB 09:23
PROVIDERS: ATTEND Internal Medicine Nephrology
DX: N18.30 Chronic kidney disease, stage 3 unspecified (principal); N25.81 Secondary hyperparathyroidism of renal origin; D63.1 Anemia in chronic kidney disease

== ENCOUNTER → 2024-04-18 | Outpatient (CLI) | payer MEDICARE, OTHER | END | disposition home or self-care (01) | LOC: CARD 00:44 | PROVIDERS: ATTEND Internal Medicine Cardiovascular Disease | DX: I08.3 Combined rheumatic disorders of mitral, aortic and tricuspid valves (principal); I25.5 Ischemic cardiomyopathy; I25.10 Atherosclerotic heart disease of native coronary artery without angina pectoris; I35.9 Nonrheumatic aortic valve disorder, unspecified; I10 Essential (primary) hypertension; E78.2 Mixed hyperlipidemia ==